=== PATIENT | female | born 1950 | race Caucasian/White ===

== ENCOUNTER 2020-08-01 13:13 | Inpatient (IN) | payer MEDICARE, MEDICAID ==
[2020-08-01] MEDS ORDERED: Sodium Chloride 0.9% 10 ML Syringe FLUSH PRN (13:22)
--- NOTE | 2020-08-01 13:38 | EDM.PDOC ---
ED HPI GENERAL MEDICAL PROBLEM - General Stated Complaint: STROKE CODE Time Seen by Provider: 08/01/20 13:13 Source of Information: Reports: Patient, EMS, RN Notes Reviewed - History of Present Illness INITIAL COMMENTS - FREE TEXT/NARRATIVE: Pt. presents to ER via EMS from [facility] as a stroke code. EMS relates that when the patient was checked on this AM at approx. 0800, the patient was weak, with possible increased weakness on the R side vs. L. Pt., however, reports increased global weakness. She also is noted to have increased dysarthria/slurred speech. She vomited once today, but reports experiencing nausea/vomiting yesterday as well. Pt. was afebrile and has not been recently ill. Pt. states that the weakness/speech problems were present when she woke up this AM. Unknown last known well. Pt. has not had any facial drool. Staff at the senior living states that she is much more weak today. She is also confused; she is not able to tell time today. Pt. denies any headache, vision loss or change, numbness/tingling in extremities. Denies any chest pain or shortness of breath. No current nausea; she did vomit once this AM at the senior living. Onset: Today Onset Date: 08/01/20 Location: Reports: Generalized - Related Data Allergies Allergy/AdvReac Type Severity Reaction Status Date / Time fluphenazine [From Prolixin] Allergy Other Verified 08/01/20 13:21 wool Allergy Other Verified 08/01/20 13:22 ED ROS GENERAL - Review of Systems Review Of Systems: See Below Constitutional: Reports: Malaise, Weakness, Fatigue. Denies: Fever, Chills HEENT: Reports: No Symptoms Respiratory: Reports: No Symptoms Cardiovascular: Reports: No Symptoms Endocrine: Reports: No Symptoms GI/Abdominal: Reports: No Symptoms : Reports: No Symptoms Musculoskeletal: Reports: No Symptoms Skin: Reports: No Symptoms Neurological: Reports: Confusion, Weakness, Change in Speech Psychiatric: Reports: No Symptoms Hematologic/Lymphatic: Reports: No Symptoms ED EXAM, GENERAL - Physical Exam Exam: See Below Exam Limited By: No Limitations General Appearance: Alert, Lethargic Eye Exam: Bilateral Eye: EOMI, Normal Fundi, Normal Inspection, PERRL Throat/Mouth: Normal Inspection, Normal Lips, Normal Teeth, Normal Oropharynx, No Airway Compromise Head: Atraumatic, Normocephalic Neck: Normal Inspection, Supple, Non-Tender, Full Range of Motion Respiratory/Chest: No Respiratory Distress, Lungs Clear, Normal Breath Sounds, No Accessory Muscle Use, Chest Non-Tender Cardiovascular: Normal Peripheral Pulses, Regular Rate, Rhythm, No Edema, No JVD GI/Abdominal: Normal Bowel Sounds, Soft, Non-Tender (Female) Exam: Vaginal Discharge (nursing reports some mucus when pt. was cathed. She was incontinent of stool.) Back Exam: Normal Inspection, Full Range of Motion Extremities: Normal Inspection, Normal Range of Motion, Non-Tender, No Pedal Edema, Normal Capillary Refill Neurological: Alert, Other (Globally weak. See NIH stroke scale attached. She is confused. Speech is slurred. Often refuses to submit to neuro evaluation but it appears that her weakness is global.) Psychiatric: Depressed Mood, Flat Affect Skin Exam: Warm, Dry, Intact, Normal Color, Pallor #1 Interpretation Rhythm: NSR Tappen: Normal P-Wave: Present QRS: Normal ST-T: Normal QT: Normal Course - Orders/Labs/Meds Orders: Active Orders 24 hr Category Date Time Status Patient Status [ADT] Routine ADT 08/01/20 15:12 Ordered EKG Documentation Completion [RC] STAT Care 08/01/20 13:23 Active Head wo Cont [CT] Stat Exams 08/01/20 13:28 Taken CULTURE BLOOD [BC] Stat Lab 08/01/20 13:36 Received CULTURE BLOOD [BC] Stat Lab 08/01/20 13:36 Received CULTURE URINE [RM] Stat Lab 08/01/20 14:15 Received Sodium Chloride 0.9% [Saline Flush] Med 08/01/20 13:22 Active 10 ml FLUSH ASDIRECTED PRN Blood Culture x2 Reflex Set [OM.PC] Stat Oth 08/01/20 13:25 Ordered Peripheral IV Insertion Adult [OM.PC] Routine Oth 08/01/20 13:23 Ordered Medication Orders Sodium Chloride (Saline Flush) 10 ml FLUSH ASDIRECTED PRN PRN Reason: Keep Vein Open Labs: Laboratory Tests 08/01/20 08/01/20 08/01/20 Range/Units 13:37 13:37 13:37 WBC 14.5 H (4.0-10.0) x10^3/uL RBC 4.07 (4.00-5.50) x10^6/uL Hgb 12.1 (12.0-16.0) g/dL Hct 39.6 (33.0-47.0) % MCV 97.3 H (78.0-93.0) fL MCH 29.7 (26.0-32.0) pg MCHC 30.6 L (32.0-36.0) g/dL RDW Coeff of Billy 12.7 (10.0-15.0) % Plt Count 264 (130-400) x10^3/uL Neut % (Auto) 91.5 H (50.0-80.0) % Lymph % (Auto) 4.0 L (25.0-50.0) % [place] % (Auto) 4.3 (2.0-11.0) % Eos % (Auto) 0.1 (0.0-4.0) % Baso % (Auto) 0.1 L (0.2-1.2) % PT 11.4 (9.9-12.5) SEC INR 1.0 L (2.0-3.5) APTT (25.6-32.8) SEC Sodium 141 (136-145) mmol/L Potassium 4.1 (3.5-5.1) mmol/L Chloride 104 (98-107) mmol/L Carbon Dioxide 26 (21-32) mmol/L Anion Gap 15.1 H (5-15) mmol/L BUN 25 H (7-18) mg/dL Creatinine 1.1 H (0.55-1.02) mg/dL Est Cr Clr Drug Dosing TNP Estimated GFR (MDRD) 49 Glucose 161 H (74-106) mg/dL Lactic Acid (0.4-2.0) mmol/L Calcium 10.0 (8.5-10.1) mg/dL Corrected Calcium 10.00 (8.5-10.1) mg/dL Magnesium 2.6 H (1.8-2.4) mg/dL Total Bilirubin 0.4 (0.2-1.0) mg/dL AST 15 (15-37) U/L ALT 18 (14-59) U/L Alkaline Phosphatase 118 H (46-116) U/L POC Troponin I (0.00-0.08) ng/mL C-Reactive Protein 1.8 H (<=0.9) mg/dL Total Protein 8.0 (6.4-8.2) g/dL Albumin 4.0 (3.4-5.0) g/dL Globulin 4.0 Albumin/Globulin Ratio 1.00 TSH, Ultra Sensitive 1.094 (0.358-3.74) uIU/mL Urine Color (YELLOW) Urine Appearance (CLEAR) Urine pH (5.0-8.0) Ur Specific [place] Urine Protein (NEGATIVE) mg/dL Urine Glucose (UA) (NEGATIVE) mg/dL Urine Ketones (NEGATIVE) mg/dL Urine Occult Blood (NEGATIVE) Urine Nitrite (NEGATIVE) Urine Bilirubin (NEGATIVE) Urine Urobilinogen (0.2) EU/dL Ur Leukocyte Esterase (NEGATIVE) Urine RBC (NOT SEEN) /HPF Urine WBC (NOT SEEN) /HPF Ur Squamous Epith Cells (NEGATIVE) /HPF Urine Bacteria (NEGATIVE) /HPF Urine Mucus (NEGATIVE) /LPF Urine Opiates Screen (NEGATIVE) Ur Buprenorphine Scrn (NEGATIVE) Ur Oxycodone Screen (NEGATIVE) Ur EDDP (Meth Metab) (NEGATIVE) Urine Methadone Screen (NEGATIVE) Ur Barbiturates Screen (NEGATIVE) Ur Tricyclics Screen (NEGATIVE) Ur Phencyclidine Scrn (NEGATIVE) Ur Amphetamine Screen (NEGATIVE) U Methamphetamines Scrn (NEGATIVE) Urine MDMA Screen (NEGATIVE) U Benzodiazepines Scrn (NEGATIVE) U Cocaine Metab Screen (NEGATIVE) U Marijuana (THC) Screen (NEGATIVE) Ethyl Alcohol < 3 (0-3) mg/dL 08/01/20 08/01/20 08/01/20 Range/Units 13:37 13:37 13:37 WBC (4.0-10.0) x10^3/uL RBC (4.00-5.50) x10^6/uL Hgb (12.0-16.0) g/dL Hct (33.0-47.0) % MCV (78.0-93.0) fL MCH (26.0-32.0) pg MCHC (32.0-36.0) g/dL RDW Coeff of Billy (10.0-15.0) % Plt Count (130-400) x10^3/uL Neut % (Auto) (50.0-80.0) % Lymph % (Auto) (25.0-50.0) % [place] % (Auto) (2.0-11.0) % Eos % (Auto) (0.0-4.0) % Baso % (Auto) (0.2-1.2) % PT (9.9-12.5) SEC INR (2.0-3.5) APTT 26.5 (25.6-32.8) SEC Sodium (136-145) mmol/L Potassium (3.5-5.1) mmol/L Chloride (98-107) mmol/L Carbon Dioxide (21-32) mmol/L Anion Gap (5-15) mmol/L BUN (7-18) mg/dL Creatinine (0.55-1.02) mg/dL Est Cr Clr Drug Dosing Estimated GFR (MDRD) Glucose (74-106) mg/dL Lactic Acid 1.7 (0.4-2.0) mmol/L Calcium (8.5-10.1) mg/dL Corrected Calcium (8.5-10.1) mg/dL Magnesium (1.8-2.4) mg/dL Total Bilirubin (0.2-1.0) mg/dL AST (15-37) U/L ALT (14-59) U/L Alkaline Phosphatase (46-116) U/L POC Troponin I 0.00 (0.00-0.08) ng/mL C-Reactive Protein (<=0.9) mg/dL Total Protein (6.4-8.2) g/dL Albumin (3.4-5.0) g/dL Globulin Albumin/Globulin Ratio TSH, Ultra Sensitive (0.358-3.74) uIU/mL Urine Color (YELLOW) Urine Appearance (CLEAR) Urine pH (5.0-8.0) Ur Specific [place] Urine Protein (NEGATIVE) mg/dL Urine Glucose (UA) (NEGATIVE) mg/dL Urine Ketones (NEGATIVE) mg/dL Urine Occult Blood (NEGATIVE) Urine Nitrite (NEGATIVE) Urine Bilirubin (NEGATIVE) Urine Urobilinogen (0.2) EU/dL Ur Leukocyte Esterase (NEGATIVE) Urine RBC (NOT SEEN) /HPF Urine WBC (NOT SEEN) /HPF Ur Squamous Epith Cells (NEGATIVE) /HPF Urine Bacteria (NEGATIVE) /HPF Urine Mucus (NEGATIVE) /LPF Urine Opiates Screen (NEGATIVE) Ur Buprenorphine Scrn (NEGATIVE) Ur Oxycodone Screen (NEGATIVE) Ur EDDP (Meth Metab) (NEGATIVE) Urine Methadone Screen (NEGATIVE) Ur Barbiturates Screen (NEGATIVE) Ur Tricyclics Screen (NEGATIVE) Ur Phencyclidine Scrn (NEGATIVE) Ur Amphetamine Screen (NEGATIVE) U Methamphetamines Scrn (NEGATIVE) Urine MDMA Screen (NEGATIVE) U Benzodiazepines Scrn (NEGATIVE) U Cocaine Metab Screen (NEGATIVE) U Marijuana (THC) Screen (NEGATIVE) Ethyl Alcohol (0-3) mg/dL 08/01/20 08/01/20 Range/Units 14:15 14:15 WBC (4.0-10.0) x10^3/uL RBC (4.00-5.50) x10^6/uL Hgb (12.0-16.0) g/dL Hct (33.0-47.0) % MCV (78.0-93.0) fL MCH (26.0-32.0) pg MCHC (32.0-36.0) g/dL RDW Coeff of Billy (10.0-15.0) % Plt Count (130-400) x10^3/uL Neut % (Auto) (50.0-80.0) % Lymph % (Auto) (25.0-50.0) % [place] % (Auto) (2.0-11.0) % Eos % (Auto) (0.0-4.0) % Baso % (Auto) (0.2-1.2) % PT (9.9-12.5) SEC INR (2.0-3.5) APTT (25.6-32.8) SEC Sodium (136-145) mmol/L Potassium (3.5-5.1) mmol/L Chloride (98-107) mmol/L Carbon Dioxide (21-32) mmol/L Anion Gap (5-15) mmol/L BUN (7-18) mg/dL Creatinine (0.55-1.02) mg/dL Est Cr Clr Drug Dosing Estimated GFR (MDRD) Glucose (74-106) mg/dL Lactic Acid (0.4-2.0) mmol/L Calcium (8.5-10.1) mg/dL Corrected Calcium (8.5-10.1) mg/dL Magnesium (1.8-2.4) mg/dL Total Bilirubin (0.2-1.0) mg/dL AST (15-37) U/L ALT (14-59) U/L Alkaline Phosphatase (46-116) U/L POC Troponin I (0.00-0.08) ng/mL C-Reactive Protein (<=0.9) mg/dL Total Protein (6.4-8.2) g/dL Albumin (3.4-5.0) g/dL Globulin Albumin/Globulin Ratio TSH, Ultra Sensitive (0.358-3.74) uIU/mL Urine Color Yellow (YELLOW) Urine Appearance Cloudy H (CLEAR) Urine pH 6.5 (5.0-8.0) Ur Specific [place] 1.020 Urine Protein 30 H (NEGATIVE) mg/dL Urine Glucose (UA) Negative (NEGATIVE) mg/dL Urine Ketones 15 H (NEGATIVE) mg/dL Urine Occult Blood Trace-lysed H (NEGATIVE) Urine Nitrite Positive H (NEGATIVE) Urine Bilirubin Negative (NEGATIVE) Urine Urobilinogen 0.2 (0.2) EU/dL Ur Leukocyte Esterase Moderate H (NEGATIVE) Urine RBC 5-10 H (NOT SEEN) /HPF Urine WBC 30-40 H (NOT SEEN) /HPF Ur Squamous Epith Cells Occasional H (NEGATIVE) /HPF Urine Bacteria Many H (NEGATIVE) /HPF Urine Mucus Few H (NEGATIVE) /LPF Urine Opiates Screen Negative (NEGATIVE) Ur Buprenorphine Scrn Negative (NEGATIVE) Ur Oxycodone Screen Negative (NEGATIVE) Ur EDDP (Meth Metab) Negative (NEGATIVE) Urine Methadone Screen Negative (NEGATIVE) Ur Barbiturates Screen Negative (NEGATIVE) Ur Tricyclics Screen Negative (NEGATIVE) Ur Phencyclidine Scrn Negative (NEGATIVE) Ur Amphetamine Screen Negative (NEGATIVE) U Methamphetamines Scrn Negative (NEGATIVE) Urine MDMA Screen Negative (NEGATIVE) U Benzodiazepines Scrn Negative (NEGATIVE) U Cocaine Metab Screen Negative (NEGATIVE) U Marijuana (THC) Screen Negative (NEGATIVE) Ethyl Alcohol (0-3) mg/dL Meds: Medications Generic Name Dose Route Start Last Admin Trade Name Freq PRN Reason Stop Dose Admin Sodium Chloride 10 ml 08/01/20 13:22 Saline Flush FLUSH ASDIRECTED PRN Keep Vein Open Discontinued Medications Generic Name Dose Route Start Last Admin Trade Name Freq PRN Reason Stop Dose Admin Ceftriaxone Sodium 2 gm 02/15/21 14:35 08/01/20 14:45 Rocephin IVPUSH 08/01/20 14:36 2 gm STAT ONE Administration - Radiology Interpretation Free Text/Narrative:: chest x-ray showed no obvious infiltrate. Poor air entry. No pneumo or pleural effusion. CT head without contrast negative for acute pathology. - Re-Assessments/Exams Free Text/Narrative Re-Assessment/Exam: Pt. was given rocephin 2gm IV for UTI. She was started on IV normal saline at 125ml/hr. Departure - Departure Time of Disposition: 15:37 Disposition: Admitted As Inpatient 66 Clinical Impression: UTI (urinary tract infection) - Discharge Information - Problem List Review Problem List Initiated/Reviewed/Updated: Yes - My Orders Last 24 Hours: My Active Orders 08/01/20 13:22 Sodium Chloride 0.9% [Saline Flush] 10 ml FLUSH ASDIRECTED PRN 08/01/20 13:23 EKG Documentation Completion [RC] STAT Peripheral IV Insertion Adult [OM.PC] Routine 08/01/20 13:25 Blood Culture x2 Reflex Set [OM.PC] Stat 08/01/20 13:28 Head wo Cont [CT] Stat 08/01/20 13:36 CULTURE BLOOD [BC] Stat CULTURE BLOOD [BC] Stat 08/01/20 14:15 CULTURE URINE [RM] Stat 08/01/20 15:12 Patient Status [ADT] Routine - Assessment/Plan Last 24 Hours: My Active Orders 08/01/20 13:22 Sodium Chloride 0.9% [Saline Flush] 10 ml FLUSH ASDIRECTED PRN 08/01/20 13:23 EKG Documentation Completion [RC] STAT Peripheral IV Insertion Adult [OM.PC] Routine 08/01/20 13:25 Blood Culture x2 Reflex Set [OM.PC] Stat 08/01/20 13:28 Head wo Cont [CT] Stat 08/01/20 13:36 CULTURE BLOOD [BC] Stat CULTURE BLOOD [BC] Stat 08/01/20 14:15 CULTURE URINE [RM] Stat 08/01/20 15:12 Patient Status [ADT] Routine Plan: Pt. will be admitted acutely by Dr. Marrufo. Pt. PCP is Dr. Vazquez. Pt. is a code 2, DNR/DNI. Will trend lactic acid. Continue IV rocephin daily.
--- NOTE | 2020-08-01 14:22 | CR ---
[id number] RAD/RAD Chest PA or AP 1V EXAM: RAD Chest PA or AP 1V INDICATION: WEAKNESS STROKE CODE COMPARISON: None available. DISCUSSION: Cardiomediastinal silhouette is normal in size and contour. Low lung volumes with associated vascular crowding. No pneumothorax or pleural effusion. Left basilar subsegmental atelectasis and or scarring. IMPRESSION: Low lung volumes with associated vascular crowding. Yazan Garcia DO 08/01/20 1421 Thank you for allowing us to participate in the care of your patient.
[2020-08-01 14:23] LABS: CHLORIDE,CL 104 mmol/L (98-107); SODIUM,NA 141 mmol/L (136-145)
[2020-08-01 14:24] LABS: ANION GAP 15.1 mmol/L (5-15)
[2020-08-01 14:25] LABS: BARBITURATE SCREEN,URINE NEGATIVE (NEGATIVE); BENZODIAZEPINES SCREEN,URINE NEGATIVE (NEGATIVE); EDDP,URINE SCREEN NEGATIVE (NEGATIVE); METHAMPHETAMINE SCREEN, URINE NEGATIVE (NEGATIVE); TCA SCREEN,URINE NEGATIVE (NEGATIVE); THC SCREEN,URINE 50 NG/ML NEGATIVE (NEGATIVE)
[2020-08-01] MEDS ORDERED: cefTRIAXone 2 GM Vial IVPUSH ONE (14:35)
[2020-08-01] MEDS ORDERED: Sodium Chloride 0.9% 1,000 ML IV SCH (15:45)
[2020-08-01] MEDS ORDERED: Ondansetron 4 MG/2 ML SDV IVPUSH ONE (15:51)
[2020-08-01] MEDS ORDERED: Acetaminophen 325 MG Tab PO PRN (17:11)
[2020-08-01] MEDS ORDERED: Ondansetron 4 MG Tab.DIS PO PRN (17:11)
--- NOTE | 2020-08-01 17:26 | PCM.HP.2 ---
H&P History of Present Illness - General Date of Service: 08/01/20 Admit Problem/Dx: Admission Diagnosis/Problem Admission Diagnosis/Problem Urosepsis - History of Present Illness Initial Comments - Free Text/Narative: Melanie Simmons is a 69yoF with a PMH of Bipolar disorder, schizophrenia, obesity, hyperlipidemia, hyperglycemia, and anemia who presented to the ER from the [facility] today for evaluation of stroke-like symptoms. EMS reports patient was checked on around 08 100 this morning was noted to be more globally weak on the right side versus the left. She had also been noted to have increas ed dysarthria and slurred speech. She has 2 emesis for the last 24 hours. She was requiring more staff for transfers today and was more confused. Upon arrival to the ED the patient was alert and oriented. Per the ER physicians exam he believed her to be more globally weak with no increased weak ness on one side versus the other. She refuses vital signs. Laboratory evaluation is notable for a leukocytosis of 14.5 with a left shift. Anion gap of 15.1, CRP 1.8, Actiq acid 1.7. Chest x-ray was normal. CT of the head was normal. Urinalysis was notable for positive nitrates, positive leukocyte esterase, trace blood, many bacteria as well as WBCs. She was treated with Rocephin 2 g and admitted to the floor for acute cares. Upon my examination the patient is unsure of why she is here, "I'm shaking." She denies any fevers, chills, LH/dizziness, palpitations, CP, abdominal pain, troubles with her bowels or bladder, or back pain. She does admit to 2 episodes of emesis and some ongoing nausea but her soda did help with this. When asked specifically she does admit to feeling more weak and being unable to care for herself today. - Related Data Allergies/Adverse Reactions: Allergies Allergy/AdvReac Type Severity Reaction Status Date / Time fluphenazine [From Prolixin] Allergy Other Verified 08/01/20 13:21 wool Allergy Other Verified 08/01/20 13:22 Home Medications: Home Meds Acetaminophen [Tylenol Arthritis] 650 mg PO Q8H 08/01/20 [History] Acetaminophen [Tylenol Arthritis] 650 mg PO TID 08/01/20 [History] Acetaminophen/HYDROcodone [[place] 325-5 MG] 1 tab PO BID 08/01/20 [History] Calcium Citrate/Vitamin D3 [Calcium Citrate - Vit D Tablet] 1 each PO BID 08/01/20 [History] Cyanocobalamin (Vitamin B-12) [B-12] 1 tab PO DAILY 08/01/20 [History] Akwesasne Carbonate [Akwesasne Carbonate ER] 750 mg PO DAILY 08/01/20 [History] Magnesium Chloride [Mag Delay] 128 mg PO BID 08/01/20 [History] OLANZapine [ZyPREXA] 10 mg PO DAILY 08/01/20 [History] Pnv No.95/Ferrous Fum/Folic AC [ Vitamin Tablet] 1 each PO DAILY 08/01/20 [History] QUEtiapine Fumarate [Seroquel Xr] 650 mg PO DAILY 08/01/20 [History] Sertraline [Zoloft] 100 mg PO DAILY 08/01/20 [History] bisacodyL [Bisacodyl] 5 mg PO ACBREAKFAST PRN 08/01/20 [History] bisacodyL [Bisacodyl] 5 mg PO DAILY 08/01/20 [History] gemfibroziL [Gemfibrozil] 600 mg PO BID 08/01/20 [History] polyethylene glycoL 3350 [Miralax] 17 gm PO BID 08/01/20 [History] Past Medical History Gastrointestinal History: Reports: Chronic Constipation Genitourinary History: Reports: Urinary Incontinence Other Psychiatric History: OCD, paranoid schizophrenia, schizoaffective disorder, bipolar type, borderline personality disorder. Hematologic History: Reports: Anemia H&P Review of Systems - Review of Systems: Review Of Systems: See Below General: Reports: Weakness HEENT: Reports: No Symptoms Pulmonary: Reports: No Symptoms Cardiovascular: Reports: No Symptoms Gastrointestinal: Reports: No Symptoms Genitourinary: Reports: No Symptoms Musculoskeletal: Reports: No Symptoms Skin: Reports: No Symptoms Psychiatric: Reports: No Symptoms Neurological: Reports: Confusion, Weakness Exam - Exam Exam: See Below - Vital Signs Weight: 227 lb 12.8 oz - Exam General: Alert, Cooperative (cooperative during ROS and history, not so with exam (neuro)) HEENT: Conjunctiva Clear, EOMI, Mucosa Moist & Combine, Pupils Equal Neck: Supple Lungs: Clear to Auscultation, Normal Respiratory Effort Cardiovascular: Regular Rate, Regular Rhythm GI/Abdominal Exam: Normal Bowel Sounds, Soft, Non-Tender, No Distention Back Exam: Other (deferred by patient) Extremities: Normal Inspection, Non-Tender, No Pedal Edema Skin: Warm, Dry, Intact Neurological: Other (patient would not comply with neuro exam past a rough CN exam that was normal. Her speech is slowed and mildly slurred.) Neuro Extensive - Mental Status: Alert Neuro Extensive - Motor, Sensory, Reflexes: CN II-XII Intact Psychiatric: Alert - Patient Data Lab Results Last 24 hrs: Laboratory Results - last 24 hr 08/01/20 08/01/20 08/01/20 Range/Units 13:37 13:37 13:37 WBC 14.5 H (4.0-10.0) x10^3/uL RBC 4.07 (4.00-5.50) x10^6/uL Hgb 12.1 (12.0-16.0) g/dL Hct 39.6 (33.0-47.0) % MCV 97.3 H (78.0-93.0) fL MCH 29.7 (26.0-32.0) pg MCHC 30.6 L (32.0-36.0) g/dL RDW Coeff of Billy 12.7 (10.0-15.0) % Plt Count 264 (130-400) x10^3/uL Neut % (Auto) 91.5 H (50.0-80.0) % Lymph % (Auto) 4.0 L (25.0-50.0) % [place] % (Auto) 4.3 (2.0-11.0) % Eos % (Auto) 0.1 (0.0-4.0) % Baso % (Auto) 0.1 L (0.2-1.2) % PT 11.4 (9.9-12.5) SEC INR 1.0 L (2.0-3.5) APTT (25.6-32.8) SEC Sodium 141 (136-145) mmol/L Potassium 4.1 (3.5-5.1) mmol/L Chloride 104 (98-107) mmol/L Carbon Dioxide 26 (21-32) mmol/L Anion Gap 15.1 H (5-15) mmol/L BUN 25 H (7-18) mg/dL Creatinine 1.1 H (0.55-1.02) mg/dL Est Cr Clr Drug Dosing TNP Estimated GFR (MDRD) 49 Glucose 161 H (74-106) mg/dL Lactic Acid (0.4-2.0) mmol/L Calcium 10.0 (8.5-10.1) mg/dL Corrected Calcium 10.00 (8.5-10.1) mg/dL Magnesium 2.6 H (1.8-2.4) mg/dL Total Bilirubin 0.4 (0.2-1.0) mg/dL AST 15 (15-37) U/L ALT 18 (14-59) U/L Alkaline Phosphatase 118 H (46-116) U/L POC Troponin I (0.00-0.08) ng/mL C-Reactive Protein 1.8 H (<=0.9) mg/dL Total Protein 8.0 (6.4-8.2) g/dL Albumin 4.0 (3.4-5.0) g/dL Globulin 4.0 Albumin/Globulin Ratio 1.00 TSH, Ultra Sensitive 1.094 (0.358-3.74) uIU/mL Urine Color (YELLOW) Urine Appearance (CLEAR) Urine pH (5.0-8.0) Ur Specific [place] Urine Protein (NEGATIVE) mg/dL Urine Glucose (UA) (NEGATIVE) mg/dL Urine Ketones (NEGATIVE) mg/dL Urine Occult Blood (NEGATIVE) Urine Nitrite (NEGATIVE) Urine Bilirubin (NEGATIVE) Urine Urobilinogen (0.2) EU/dL Ur Leukocyte Esterase (NEGATIVE) Urine RBC (NOT SEEN) /HPF Urine WBC (NOT SEEN) /HPF Ur Squamous Epith Cells (NEGATIVE) /HPF Urine Bacteria (NEGATIVE) /HPF Urine Mucus (NEGATIVE) /LPF Urine Opiates Screen (NEGATIVE) Ur Buprenorphine Scrn (NEGATIVE) Ur Oxycodone Screen (NEGATIVE) Ur EDDP (Meth Metab) (NEGATIVE) Urine Methadone Screen (NEGATIVE) Ur Barbiturates Screen (NEGATIVE) Ur Tricyclics Screen (NEGATIVE) Ur Phencyclidine Scrn (NEGATIVE) Ur Amphetamine Screen (NEGATIVE) U Methamphetamines Scrn (NEGATIVE) Urine MDMA Screen (NEGATIVE) U Benzodiazepines Scrn (NEGATIVE) U Cocaine Metab Screen (NEGATIVE) U Marijuana (THC) Screen (NEGATIVE) Ethyl Alcohol < 3 (0-3) mg/dL 08/01/20 08/01/20 08/01/20 Range/Units 13:37 13:37 13:37 WBC (4.0-10.0) x10^3/uL RBC (4.00-5.50) x10^6/uL Hgb (12.0-16.0) g/dL Hct (33.0-47.0) % MCV (78.0-93.0) fL MCH (26.0-32.0) pg MCHC (32.0-36.0) g/dL RDW Coeff of Billy (10.0-15.0) % Plt Count (130-400) x10^3/uL Neut % (Auto) (50.0-80.0) % Lymph % (Auto) (25.0-50.0) % [place] % (Auto) (2.0-11.0) % Eos % (Auto) (0.0-4.0) % Baso % (Auto) (0.2-1.2) % PT (9.9-12.5) SEC INR (2.0-3.5) APTT 26.5 (25.6-32.8) SEC Sodium (136-145) mmol/L Potassium (3.5-5.1) mmol/L Chloride (98-107) mmol/L Carbon Dioxide (21-32) mmol/L Anion Gap (5-15) mmol/L BUN (7-18) mg/dL Creatinine (0.55-1.02) mg/dL Est Cr Clr Drug Dosing Estimated GFR (MDRD) Glucose (74-106) mg/dL Lactic Acid 1.7 (0.4-2.0) mmol/L Calcium (8.5-10.1) mg/dL Corrected Calcium (8.5-10.1) mg/dL Magnesium (1.8-2.4) mg/dL Total Bilirubin (0.2-1.0) mg/dL AST (15-37) U/L ALT (14-59) U/L Alkaline Phosphatase (46-116) U/L POC Troponin I 0.00 (0.00-0.08) ng/mL C-Reactive Protein (<=0.9) mg/dL Total Protein (6.4-8.2) g/dL Albumin (3.4-5.0) g/dL Globulin Albumin/Globulin Ratio TSH, Ultra Sensitive (0.358-3.74) uIU/mL Urine Color (YELLOW) Urine Appearance (CLEAR) Urine pH (5.0-8.0) Ur Specific [place] Urine Protein (NEGATIVE) mg/dL Urine Glucose (UA) (NEGATIVE) mg/dL Urine Ketones (NEGATIVE) mg/dL Urine Occult Blood (NEGATIVE) Urine Nitrite (NEGATIVE) Urine Bilirubin (NEGATIVE) Urine Urobilinogen (0.2) EU/dL Ur Leukocyte Esterase (NEGATIVE) Urine RBC (NOT SEEN) /HPF Urine WBC (NOT SEEN) /HPF Ur Squamous Epith Cells (NEGATIVE) /HPF Urine Bacteria (NEGATIVE) /HPF Urine Mucus (NEGATIVE) /LPF Urine Opiates Screen (NEGATIVE) Ur Buprenorphine Scrn (NEGATIVE) Ur Oxycodone Screen (NEGATIVE) Ur EDDP (Meth Metab) (NEGATIVE) Urine Methadone Screen (NEGATIVE) Ur Barbiturates Screen (NEGATIVE) Ur Tricyclics Screen (NEGATIVE) Ur Phencyclidine Scrn (NEGATIVE) Ur Amphetamine Screen (NEGATIVE) U Methamphetamines Scrn (NEGATIVE) Urine MDMA Screen (NEGATIVE) U Benzodiazepines Scrn (NEGATIVE) U Cocaine Metab Screen (NEGATIVE) U Marijuana (THC) Screen (NEGATIVE) Ethyl Alcohol (0-3) mg/dL 08/01/20 08/01/20 Range/Units 14:15 14:15 WBC (4.0-10.0) x10^3/uL RBC (4.00-5.50) x10^6/uL Hgb (12.0-16.0) g/dL Hct (33.0-47.0) % MCV (78.0-93.0) fL MCH (26.0-32.0) pg MCHC (32.0-36.0) g/dL RDW Coeff of Billy (10.0-15.0) % Plt Count (130-400) x10^3/uL Neut % (Auto) (50.0-80.0) % Lymph % (Auto) (25.0-50.0) % [place] % (Auto) (2.0-11.0) % Eos % (Auto) (0.0-4.0) % Baso % (Auto) (0.2-1.2) % PT (9.9-12.5) SEC INR (2.0-3.5) APTT (25.6-32.8) SEC Sodium (136-145) mmol/L Potassium (3.5-5.1) mmol/L Chloride (98-107) mmol/L Carbon Dioxide (21-32) mmol/L Anion Gap (5-15) mmol/L BUN (7-18) mg/dL Creatinine (0.55-1.02) mg/dL Est Cr Clr Drug Dosing Estimated GFR (MDRD) Glucose (74-106) mg/dL Lactic Acid (0.4-2.0) mmol/L Calcium (8.5-10.1) mg/dL Corrected Calcium (8.5-10.1) mg/dL Magnesium (1.8-2.4) mg/dL Total Bilirubin (0.2-1.0) mg/dL AST (15-37) U/L ALT (14-59) U/L Alkaline Phosphatase (46-116) U/L POC Troponin I (0.00-0.08) ng/mL C-Reactive Protein (<=0.9) mg/dL Total Protein (6.4-8.2) g/dL Albumin (3.4-5.0) g/dL Globulin Albumin/Globulin Ratio TSH, Ultra Sensitive (0.358-3.74) uIU/mL Urine Color Yellow (YELLOW) Urine Appearance Cloudy H (CLEAR) Urine pH 6.5 (5.0-8.0) Ur Specific [place] 1.020 Urine Protein 30 H (NEGATIVE) mg/dL Urine Glucose (UA) Negative (NEGATIVE) mg/dL Urine Ketones 15 H (NEGATIVE) mg/dL Urine Occult Blood Trace-lysed H (NEGATIVE) Urine Nitrite Positive H (NEGATIVE) Urine Bilirubin Negative (NEGATIVE) Urine Urobilinogen 0.2 (0.2) EU/dL Ur Leukocyte Esterase Moderate H (NEGATIVE) Urine RBC 5-10 H (NOT SEEN) /HPF Urine WBC 30-40 H (NOT SEEN) /HPF Ur Squamous Epith Cells Occasional H (NEGATIVE) /HPF Urine Bacteria Many H (NEGATIVE) /HPF Urine Mucus Few H (NEGATIVE) /LPF Urine Opiates Screen Negative (NEGATIVE) Ur Buprenorphine Scrn Negative (NEGATIVE) Ur Oxycodone Screen Negative (NEGATIVE) Ur EDDP (Meth Metab) Negative (NEGATIVE) Urine Methadone Screen Negative (NEGATIVE) Ur Barbiturates Screen Negative (NEGATIVE) Ur Tricyclics Screen Negative (NEGATIVE) Ur Phencyclidine Scrn Negative (NEGATIVE) Ur Amphetamine Screen Negative (NEGATIVE) U Methamphetamines Scrn Negative (NEGATIVE) Urine MDMA Screen Negative (NEGATIVE) U Benzodiazepines Scrn Negative (NEGATIVE) U Cocaine Metab Screen Negative (NEGATIVE) U Marijuana (THC) Screen Negative (NEGATIVE) Ethyl Alcohol (0-3) mg/dL Result Diagrams: 08/01/20 13:37 08/01/20 13:37 Sepsis Event Note - Evaluation Sepsis Screening Result: No Definite Risk - Problem List (1) Bipolar 1 disorder SNOMED Code(s): 043062436 ICD Code: F31.9 - BIPOLAR DISORDER, UNSPECIFIED Status: Acute Current Visit: Yes (2) Schizophrenia SNOMED Code(s): 00024035 ICD Code: F20.9 - SCHIZOPHRENIA, UNSPECIFIED Status: Acute Current Visit: Yes (3) Obesity SNOMED Code(s): 864736620, 324141867 ICD Code: E66.9 - OBESITY, UNSPECIFIED Status: Acute Current Visit: Yes (4) Hyperlipidemia SNOMED Code(s): 16591492 ICD Code: E78.5 - HYPERLIPIDEMIA, UNSPECIFIED Status: Acute Current Visit: Yes (5) Hyperglycemia SNOMED Code(s): 47928482 ICD Code: R73.9 - HYPERGLYCEMIA, UNSPECIFIED Status: Acute Current Visit: Yes (6) Anemia SNOMED Code(s): 226854859 ICD Code: D64.9 - ANEMIA, UNSPECIFIED Status: Acute Current Visit: Yes (7) UTI (urinary tract infection) SNOMED Code(s): 89094403 ICD Code: N39.0 - URINARY TRACT INFECTION, SITE NOT SPECIFIED Status: Acute Current Visit: Yes Problem List Initiated/Reviewed/Updated: Yes Orders Last 24hrs: Active Orders 24 hr Category Date Time Status Patient Status [ADT] Routine ADT 08/01/20 15:12 Active Blood Glucose Check, Bedside [RC] TIDMEALS Care 08/01/20 17:11 Ordered Dietary Supplements [RC] BIDMEALS Care 08/01/20 17:20 Ordered Intake and Output [RC] QSHIFT Care 08/01/20 17:11 Ordered Oxygen Therapy [RC] PRN Care 08/01/20 17:11 Ordered Up With Assistance [RC] ASDIRECTED Care 08/01/20 17:11 Ordered VTE/DVT Education [RC] PER UNIT ROUTINE Care 08/01/20 17:11 Ordered Vital Signs [RC] Q4H Care 08/01/20 17:11 Ordered [place] [employer] Diet [DIET] Diet 08/01/20 Dinner Ordered Head wo Cont [CT] Stat Exams 08/01/20 13:28 Taken BASIC METABOLIC PANEL,BMP [CHEM] DAILY Lab 08/02/20 06:00 Ordered CBC WITH AUTO DIFF [HEME] DAILY Lab 08/02/20 06:00 Ordered CULTURE BLOOD [BC] Stat Lab 08/01/20 13:36 Received CULTURE BLOOD [BC] Stat Lab 08/01/20 13:36 Received CULTURE MRSA SURVEY [RM] Routine Lab 08/01/20 17:08 Ordered CULTURE URINE [RM] Stat Lab 08/01/20 14:15 Received Acetaminophen [TylenoL] Med 08/01/20 17:11 Ordered 650 mg PO Q4H PRN Acetaminophen/HYDROcodone [[place] 325-5 MG] Med 08/01/20 20:00 Ordered 1 tab PO BID Calcium Citrate/Vitamin D3 [Calcium Citrate - Vit D Med 08/01/20 20:00 Ordered Tablet] 1 each PO BID Cyanocobalamin (Vitamin B12) [Vitamin B12] Med 08/02/20 08:00 Ordered 1 tab PO DAILY Heparin Sodium Med 08/01/20 17:15 Ordered 5,000 units SUBCUT Q8H Akwesasne Carbonate [Eskalith CR] Med 08/02/20 08:00 Ordered 750 mg PO DAILY Magnesium Chloride [Mag-64] Med 08/01/20 20:00 Ordered 128 mg PO BID OLANZapine [ZyPREXA] Med 08/02/20 08:00 Ordered 10 mg PO DAILY Ondansetron [Zofran ODT] Med 08/01/20 17:11 Ordered 4 mg PO Q4H PRN Pnv No.95/Ferrous Fum/Folic AC [ Vitamin Tablet Med 08/02/20 08:00 Ordered ] 1 each PO DAILY QUEtiapine Fumarate [Seroquel Xr] Med 08/02/20 08:00 Ordered 650 mg PO DAILY Sertraline [Zoloft] Med 08/02/20 08:00 Ordered 100 mg PO DAILY Sodium Chloride 0.9% [Normal Saline] 1,000 ml Med 08/01/20 15:45 Active IV ASDIRECTED Sodium Chloride 0.9% [Saline Flush] Med 08/01/20 13:22 Active 10 ml FLUSH ASDIRECTED PRN bisacodyL [Dulcolax] Med 08/02/20 08:00 Ordered 5 mg PO DAILY cefTRIAXone [Rocephin] Med 08/02/20 08:00 Ordered 2 gm IVPUSH DAILY gemfibroziL [Lopid] Med 08/01/20 20:00 Ordered 600 mg PO BID polyethylene glycoL 3350 [MiraLAX] Med 08/01/20 20:00 Ordered 17 gm PO BID Blood Culture x2 Reflex Set [OM.PC] Stat Oth 08/01/20 13:25 Ordered Peripheral IV Insertion Adult [OM.PC] Routine Oth 08/01/20 13:23 Ordered Resuscitation Status Routine Resus Stat 08/01/20 17:11 Ordered Medication Orders Acetaminophen (Tylenol) 650 mg PO Q4H PRN PRN Reason: Pain (Mild 1-3)/fever Hydrocodone Bitart/Acetaminophen ([place] 325-5 Mg) 1 tab PO BID TOD Bisacodyl (Dulcolax) 5 mg PO DAILY TOD Ceftriaxone Sodium (Rocephin) 2 gm IVPUSH DAILY TOD Cyanocobalamin (Vitamin B12) mcg PO DAILY TOD Gemfibrozil (Lopid) 600 mg PO BID TOD Heparin Sodium (Porcine) (Heparin Sodium) 5,000 units SUBCUT Q8H TOD Sodium Chloride (Normal Saline) 1,000 mls @ 125 mls/hr IV ASDIRECTED TOD Last Admin: 08/01/20 15:59 Dose: 125 mls/hr Documented by: ROMA Akwesasne Carbonate (Eskalith Cr) 750 mg PO DAILY TOD Magnesium Chloride (Mag-64) 128 mg PO BID TOD Non-Formulary Medication (Calcium Citrate/Vitamin D3 [Calcium Citrate - Vit D Tablet]) 1 each PO BID TOD Non-Formulary Medication (Quetiapine Fumarate [Seroquel Xr]) 650 mg PO DAILY TOD Non-Formulary Medication (Pnv No.95/Ferrous Fum/Folic Ac [ Vitamin Tabl et]) 1 each PO DAILY TOD Olanzapine (Zyprexa) 10 mg PO DAILY TOD Ondansetron HCl (Zofran Odt) 4 mg PO Q4H PRN PRN Reason: nausea, able to take PO Polyethylene Glycol (Miralax) 17 gm PO BID TOD Sertraline HCl (Zoloft) 100 mg PO DAILY TOD Sodium Chloride (Saline Flush) 10 ml FLUSH ASDIRECTED PRN PRN Reason: Keep Vein Open Assessment/Plan Comment:: UTI: - Patient presenting from [facility] with c/o weakness, exam benign - Found to have UTI on UA - New incontinence today - S/P Rocephin 2g in the ED, in the middle of a 1L fluid bolus Plan: -Continue IV Rocephin -Once she has the 1L in will cut fluids and push oral hydration as CXR did show some mild vascular congestion -Blood and urine cultures pending -Repeat CBC/BMP in the am -Zofran PRN for nausea Generalized weakness/deconditioning - Patient with increased global weakness per ED provider exam (patient would not comply with mine) Plan: - PT and OT evaluation Chronic: Schizophrenia, Bipolar disorder continue home lithium, olanzapine, Seroquel, sertraline, folic acid HLD continue home gemfibraozil Anemia continue vitamin with Iron Hyperglycemia TID glucose monitoring with meals Diet: Diabetic DVT: heparin SQ Code: DNR/DNI Dispositoin: Patient admitted inpatient for IV antibiotics for treatment of UTI. Will monitor cultures and adjust antibiotics as necessary. Will have PT and OT evaluate patient given new onset of increased weakness. - Mortality Measure Prognosis:: Good
[2020-08-01] MEDS ORDERED: Heparin Sodium 5,000 Units/ML Vial SUBCUT SCH (18:00)
[2020-08-01] MEDS: Polyethylene Glycol 3350 Powder 17 GM Packet PO SCH (20:10)
[2020-08-01] MEDS: Gemfibrozil 600 MG Tab PO SCH (20:11)
[2020-08-01] MEDS: Heparin Sodium 5,000 Units/ML Vial SUBCUT SCH (20:11)
[2020-08-01] MEDS: Magnesium Chloride 64 MG Tab.ER PO SCH (20:11)
[2020-08-01] MEDS: Calcium Carbonate/Vitamin D3 1250 MG-200 Unit Tab PO SCH (20:12)
[2020-08-01] MEDS: Acetaminophen/HYDROcodone 325-5 MG Tab PO SCH (20:12)
[2020-08-02] MEDS: Heparin Sodium 5,000 Units/ML Vial SUBCUT SCH ×3 (03:16→19:59)
[2020-08-02 07:15] LABS: CHLORIDE,CL 106 mmol/L (98-107); SODIUM,NA 143 mmol/L (136-145)
[2020-08-02 07:16] LABS: ANION GAP 12.8 mmol/L (5-15)
[2020-08-02] MEDS: Magnesium Chloride 64 MG Tab.ER PO SCH ×2 (08:36→19:59)
[2020-08-02] MEDS: Sertraline 100 MG Tab PO SCH (08:36)
[2020-08-02] MEDS: Bisacodyl 5 MG Tab PO SCH (08:36)
[2020-08-02] MEDS: Cyanocobalamin (Vitamin B12) 1,000 MCG Tab PO SCH (08:36)
[2020-08-02] MEDS: Lithium Carbonate 300 MG Tab.ER PO SCH (08:36)
[2020-08-02] MEDS: Calcium Carbonate/Vitamin D3 1250 MG-200 Unit Tab PO SCH ×2 (08:36→19:57)
[2020-08-02] MEDS: Acetaminophen/HYDROcodone 325-5 MG Tab PO SCH ×2 (08:36→19:57)
[2020-08-02] MEDS: Gemfibrozil 600 MG Tab PO SCH ×2 (08:36→19:58)
[2020-08-02] MEDS: Polyethylene Glycol 3350 Powder 17 GM Packet PO SCH ×2 (08:37→20:01)
--- NOTE | 2020-08-02 09:10 | CT ---
[id number] CT/CT Head WO IV EXAM: CT Head WO IV CLINICAL DATA: STROKE CODE COMPARISON: NO PREVIOUS SIMILAR EXAM IS AVAILABLE FOR COMPARISON. FINDINGS: There is motion artifact There is no mass or mass effect. There is no hemorrhage or hydrocephalus. There are no extra-axial fluid collections. There are no sites of abnormal attenuation. IMPRESSION: NO PLAIN CT EVIDENCE OF ACUTE INTRACRANIAL PROCESS. Paul Simpson MD 08/02/20 0909 Thank you for allowing us to participate in the care of your patient.
[2020-08-02] MEDS ORDERED: OLANZapine 10 MG Tab PO ONE (10:00)
[2020-08-02] MEDS: QUEtiapine 100 MG Tab PO SCH ×2 (10:32→19:56)
--- NOTE | 2020-08-02 10:39 | PN ---
Progress Note for BUNNY Alexander RUNNING Date: 08/02/2020 Room #: [facility] SUBJECTIVE: This is hospital day #2 on a 69-year-old admitted with concern for a stroke due to weakness and dysphagia, but ultimately found to have a UTI, but she did not meet sepsis criteria. She has been afebrile here. She had a new incontinence of urine and confusion, but she denies any pain with urination. She has a known history of schizophrenia. The patient did not get her Seroquel last evening. She is much more alert and awake today. I have already discussed with pharmacy her med dosing for the Zyprexa as well. The patient denies any cough. She denies any shortness of breath. She drank a big glass of orange juice with her pills this morning. She ate half of her breakfast. She has not had any further vomiting since admission. OBJECTIVE: Vital Signs: Her temperature is 99.1, her pulse 87, blood pressure 151/81, respiratory rate 19, and O2 of 93% on room air. General: She is in no acute distress. She is resting in bed comfortably. She wanted to be sat up more to take her pills. She did not recognize me. She is not aware of the date or where she is at. Heart: Regular rate and rhythm. S1, S2 without murmur. Lungs: Sounds are clear to auscultation bilaterally without crackles or wheezes. Abdomen: Has positive bowel sounds. Soft, nondistended, nontender. Extremities: Warm and dry. No edema. Mental Status: She is disorientated. LABORATORY DATA: Her lab work shows her white count improved down to 11.6, hemoglobin 10.7, platelets 229. Sodium 143, potassium 3.8, chloride 106, bicarb 28, BUN 16, creatinine 0.8, glucose 121, calcium 9.8. Urine culture is already growing gram-negative rods. Years ago, she had a UTI and got Bactrim. ASSESSMENT: 1. Gram-negative urinary tract infection, on day #2 IV Rocephin. We will continue with the same. 2. Weakness, seems to be more global. It does not appear the patient had any stroke. We will get her up and working with therapies. 3. Schizophrenia and bipolar. We will continue her home medications. Pharmacy is adjusting doses due to no Seroquel XR availability. She is also on lithium. 4. Anemia. She is on DVT prophylaxis with heparin. We will monitor her hemoglobin closely, likely due to some hemodilution today. 5. Hyperglycemia. She has had some blood sugars improved, 122 and 121 this morning. I think I will discontinue that monitoring. 6. 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 7. Obesity. 8. Hyperlipidemia. 9. Stress incontinence. She is no longer on the oxybutynin, which would likely increase her risks of infection. PLAN: The patient will continue acute cares with IV Rocephin. We will stop IV fluids. She will likely be able to return to [facility] as soon as tomorrow. MKA: 08/02/2020 09:55:54 MODL: 08/02/2020 10:34:10 /[id number]
[2020-08-02] MEDS ORDERED: cefTRIAXone 2 GM Vial IVPUSH SCH (14:00)
[2020-08-02] MEDS ORDERED: OLANZapine 10 MG Tab PO SCH (20:00)
[2020-08-03] MEDS: Heparin Sodium 5,000 Units/ML Vial SUBCUT SCH (04:07)
[2020-08-03 07:28] LABS: CHLORIDE,CL 106 mmol/L (98-107); SODIUM,NA 142 mmol/L (136-145)
[2020-08-03 07:30] LABS: ANION GAP 13.3 mmol/L (5-15)
[2020-08-03] MEDS ORDERED: Multivitamins with Iron/Calcium/Folic Acid/Minerals Tab PO SCH (08:00)
[2020-08-03] MEDS: Bisacodyl 5 MG Tab PO SCH (08:11)
[2020-08-03] MEDS: Acetaminophen/HYDROcodone 325-5 MG Tab PO SCH (08:11)
[2020-08-03] MEDS: Cyanocobalamin (Vitamin B12) 1,000 MCG Tab PO SCH (08:11)
[2020-08-03] MEDS: QUEtiapine 100 MG Tab PO SCH (08:11)
[2020-08-03] MEDS: Polyethylene Glycol 3350 Powder 17 GM Packet PO SCH (08:11)
[2020-08-03] MEDS: Gemfibrozil 600 MG Tab PO SCH (08:11)
[2020-08-03] MEDS: Magnesium Chloride 64 MG Tab.ER PO SCH (08:11)
[2020-08-03] MEDS: Sertraline 100 MG Tab PO SCH (08:12)
[2020-08-03] MEDS: Lithium Carbonate 300 MG Tab.ER PO SCH (08:12)
[2020-08-03] MEDS: Calcium Carbonate/Vitamin D3 1250 MG-200 Unit Tab PO SCH (08:12)
--- NOTE | 2020-08-03 13:40 | DISCH ---
PRIMARY DISCHARGE DIAGNOSES: 1. Escherichia coli urinary tract infection. 2. Confusion and weakness related to urinary tract infection. SECONDARY DISCHARGE DIAGNOSES: Include: 1. Schizophrenia and bipolar disorder. 2. Chronic anemia, on iron. 3. Hyperglycemia without diabetes. 4. 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 5. Obesity. 6. Hyperlipidemia. 7. Stress incontinence. REASON FOR ADMISSION: On the date of admission, this 69-year-old female had weakness and dysarthria. There was concern for a stroke. She was sent over to the ER. She was afebrile but had had some new urinary incontinence. UA was positive. She was placed on IV Rocephin 2 g IV daily. She eventually had a culture that was pansensitive, and we changed her over to Bactrim to complete 3 more days on discharge. The patient did miss her initial psychiatric medications on admission, but these were restarted. Seroquel was immediate release, and she tolerated that well. She did have a very large bowel movement on the evening before her discharge and then this morning she had more loose stools. She is already on MiraLAX twice daily, which she was receiving here. It was not felt that she was having any Clostridium difficile concern. Her breathing was good. She was off oxygen. DISCHARGE PLANS AND INSTRUCTIONS: The patient is going back to [facility]. She did have a COVID test that was negative prior to her discharge back. She had just got out of her 90-day window from having COVID around 04/25/2020. She will complete Bactrim double strength twice daily for 3 more days. No new lab work orders are on file. She will [facility]/OT at the jail, and I will see her on the next scheduled jail rounds. DISCHARGE PHYSICAL EXAMINATION: Vital Signs: Discharging vitals include a temperature of 97.6, pulse 74, blood pressure 143/67, respiratory rate 16, and O2 of 98% on room air. Previous blood pressure was 130/68. General: She is in no acute distress. Heart: Regular rate and rhythm. S1, S2 without murmur. Lungs: Lung sounds are clear to auscultation bilaterally without crackles or wheezes. Abdomen: Has positive bowel sounds. Soft, nondistended, and nontender. Extremities: Warm and dry. No edema. MENTAL STATUS EXAMINATION: The patient is disorientated. She did not recognize me. She said she knew where she was at, but then she did not know she was in the hospital. This is about her baseline from what I [facility]. DISCHARGING LABORATORY WORK: Showed normal white count down to 6.8, hemoglobin stable at 10.6, and platelets 226. She was on heparin for DVT prophylaxis while she was here. Sodium 142, potassium 4.3, chloride 106, bicarbonate 27, BUN 10, creatinine 0.7, calcium 10.4, and glucose 106. LFTs normal. Albumin mildly decreased to 3.2, but the patient was eating and drinking well here. Greater 30 minutes spent on the discharge process. MKA: 08/03/2020 12:55:35 MODL: 08/03/2020 13:35:16 /[id number]
== END 2020-08-03 10:10 | DRG 690 ==
LOC: VM.ED 13:13 → VM.MS 15:12
PROVIDERS: ADMIT Family Medicine; ATTEND Internal Medicine
DX: N39.0 Urinary tract infection, site not specified (principal); B96.20 Unspecified Escherichia coli [E. coli] as the cause of diseases classified elsewhere; Z91.048 Other nonmedicinal substance allergy status; F20.9 Schizophrenia, unspecified; E78.5 Hyperlipidemia, unspecified; N39.3 Stress incontinence (female) (male); R73.9 Hyperglycemia, unspecified; Z20.822 Contact with and (suspected) exposure to COVID-19; K59.09 Other constipation; F31.9 Bipolar disorder, unspecified; F42.9 Obsessive-compulsive disorder, unspecified; Z66 Do not resuscitate; Z88.8 Allergy status to other drugs, medicaments and biological substances; Z91.09 Other allergy status, other than to drugs and biological substances; Z79.899 Other long term (current) drug therapy; M17.0 Bilateral primary osteoarthritis of knee
CPT/HCPCS: 36415; 70450; 71045; 80048; 80053; 80305-QW; 80307; 81001; 82962; 83605; 83735; 84443; 84484; 85025; 85610; 85730; 86140; 87040; 87086; 87088; 87186; 93005; 93010; 96374; 99284; 99285-25; A9270-GY; J0696; J1644; J2405; J7030; U0002

== ENCOUNTER 2020-08-14 22:54 | Emergency (ER) | payer MEDICARE, MEDICAID ==
[2020-08-14] MEDS ORDERED: Sodium Chloride 0.9% 1,000 ML IV SCH (23:15)
[2020-08-14] MEDS ORDERED: Ondansetron 4 MG/2 ML SDV IVPUSH ONE (23:18)
--- NOTE | 2020-08-14 23:27 | EDM.PDOC ---
ED HPI GENERAL MEDICAL PROBLEM - General Stated Complaint: VOMITING ALL DAY Time Seen by Provider: 08/14/20 22:54 Source of Information: Reports: Patient History Limitations: Reports: No Limitations - History of Present Illness INITIAL COMMENTS - FREE TEXT/NARRATIVE: Pt. was sent to ER from [facility] with concerns of GI bleeding. Staff states that the patient fell off of a toilet today when she was left unattended, striking the back of her head. They are also concerned as the patient had been experiencing black vomit and diarrhea today as well. Pt. states that she has felt "queasy" all day. Vitals were all within normal limits, in fact pt. was a bit hypertensive for EMS. She did refuse to take her medications today due to her nausea. She denies any abdominal pain at this time. Pt. denies any current headache. She does have a history of dementia She has been alert all day. Pt. was admitted here from thru for UTI/dehydration. She was treated with Rocephin, and sent home on bactrim DS for 3 more days. She appears to be much more animated tonight, and actually more alert than during her admission earlier in the month. Pt. denies any current urinary symptoms, dysuria, or abdominal pain. Denies any chest pain or shortness of breath. No cough. She is not experiencing any lightheadedness. No fever, chills, or cough. She is able to recall the events of the day, and they seem to follow what was told to us by EMS and PSYCHIATRIC staff. Onset: Today Location: Reports: Head, Generalized Abdominal Pain Score (Numeric/FACES): 4 - Related Data Allergies Allergy/AdvReac Type Severity Reaction Status Date / Time fluphenazine [From Prolixin] Allergy Other Verified 08/14/20 23:26 wool Allergy Other Verified 08/14/20 23:26 Home Meds: Home Meds Acetaminophen [Tylenol Arthritis] 650 mg PO Q8H 08/01/20 [History] Acetaminophen [Tylenol Arthritis] 650 mg PO TID 08/01/20 [History] Acetaminophen/HYDROcodone [[place] 325-5 MG] 1 tab PO BID 08/01/20 [History] Calcium Citrate/Vitamin D3 [Calcium Citrate - Vit D Tablet] 1 each PO BID 08/01/20 [History] Cyanocobalamin (Vitamin B-12) [B-12] 1 tab PO DAILY 08/01/20 [History] [place] Carbonate [[place] Carbonate ER] 750 mg PO DAILY 08/01/20 [History] Magnesium Chloride [Mag Delay] 128 mg PO BID 08/01/20 [History] OLANZapine [ZyPREXA] 20 mg PO BEDTIME 08/01/20 [History] Pnv No.95/Ferrous Fum/Folic AC [ Vitamin Tablet] 1 each PO DAILY 08/01/20 [History] Sertraline [Zoloft] 100 mg PO DAILY 08/01/20 [History] bisacodyL [Bisacodyl] 5 mg PO ACBREAKFAST PRN 08/01/20 [History] bisacodyL [Bisacodyl] 5 mg PO DAILY 08/01/20 [History] gemfibroziL [Gemfibrozil] 600 mg PO BID 08/01/20 [History] polyethylene glycoL 3350 [Miralax] 17 gm PO BID 08/01/20 [History] QUEtiapine Fumarate [Quetiapine Fumarate ER] 200 mg PO BEDTIME 08/02/20 [History] QUEtiapine Fumarate [Quetiapine Fumarate ER] 400 mg PO BEDTIME 08/02/20 [History] Sulfamethoxazole/Trimethoprim [Bactrim Ds Tablet] 1 each PO BID #6 tablet 08/03/20 [Rx] Past Medical History Gastrointestinal History: Reports: Chronic Constipation Genitourinary History: Reports: Urinary Incontinence Other Psychiatric History: OCD, paranoid schizophrenia, schizoaffective disorder, bipolar type, borderline personality disorder. Hematologic History: Reports: Anemia ED ROS GENERAL - Review of Systems Review Of Systems: See Below Constitutional: Reports: No Symptoms HEENT: Reports: Other (Posterior superficial head pain) Respiratory: Reports: No Symptoms Cardiovascular: Reports: No Symptoms Endocrine: Reports: No Symptoms GI/Abdominal: Reports: Black Stool, Hematochezia : Reports: No Symptoms Musculoskeletal: Reports: No Symptoms Skin: Reports: No Symptoms Neurological: Reports: No Symptoms Psychiatric: Reports: No Symptoms Hematologic/Lymphatic: Reports: No Symptoms Immunologic: Reports: No Symptoms ED EXAM, GENERAL - Physical Exam Exam: See Below Exam Limited By: No Limitations General Appearance: Alert, WD/WN, No Apparent Distress Eye Exam: Bilateral Eye: EOMI, Normal Fundi, Normal Inspection, PERRL Throat/Mouth: Normal Inspection, Normal Lips, Normal Voice, No Airway Compromise Head: Atraumatic, Normocephalic Neck: Supple, Non-Tender Respiratory/Chest: No Respiratory Distress, Lungs Clear, No Accessory Muscle Use, Chest Non-Tender Cardiovascular: Normal Peripheral Pulses, Regular Rate, Rhythm, No Edema, No Murmur Peripheral Pulses: 4+: Radial (L) GI/Abdominal: Soft, Non-Tender, No Distention, No Mass, Other (bowel sounds hyperactive. No tenderness on palpation. No rigidity/guarding.) (Female) Exam: Deferred Rectal (Female) Exam: Normal Exam, Normal Rectal Tone, Heme - Stool, Other (Stool negative for occult blood. Stool light brown, loose. No incontinence.). No: Black Stool, Bloody Stool, Heme + Stool Back Exam: Normal Inspection Extremities: Normal Inspection (Normal for patient. Atrophy to lower extremities, consistent with pervious exam. No discomfort on palpation/manipulation of hip joints. Pelvis stable.), Non-Tender Neurological: Alert, CN II-XII Intact, Other (Much more alert that previous exam. Able to recall events of the day and participate in her care.) Psychiatric: Normal Affect, Normal Mood Course - Vital Signs Last Recorded V/S: Last Vital Signs Temp 36.6 C 08/14/20 23:28 Pulse 82 08/14/20 23:58 Resp 15 08/14/20 23:58 BP 170/92 H 08/14/20 23:58 Pulse Ox 98 08/14/20 23:58 - Orders/Labs/Meds Orders: Active Orders 24 hr Category Date Time Status Head wo Cont [CT] Stat Exams 08/14/20 23:11 Stop Req Sodium Chloride 0.9% [Normal Saline] 1,000 ml Med 08/14/20 23:15 Active IV ASDIRECTED Medication Orders Sodium Chloride (Normal Saline) 1,000 mls @ 1,000 mls/hr IV ASDIRECTED TOD Last Admin: 08/14/20 23:18 Dose: 1,000 mls/hr Documented by: SANDRA Labs: Laboratory Tests 08/14/20 08/14/20 08/14/20 Range/Units 23:20 23:46 23:46 WBC 14.3 H (4.0-10.0) x10^3/uL RBC 3.79 L (4.00-5.50) x10^6/uL Hgb 11.1 L (12.0-16.0) g/dL Hct 37.0 (33.0-47.0) % MCV 97.6 H (78.0-93.0) fL MCH 29.3 (26.0-32.0) pg MCHC 30.0 L (32.0-36.0) g/dL RDW Coeff of Billy 12.4 (10.0-15.0) % Plt Count 298 (130-400) x10^3/uL Neut % (Auto) 85.7 H (50.0-80.0) % Lymph % (Auto) 8.3 L (25.0-50.0) % [facility] % (Auto) 5.6 (2.0-11.0) % Eos % (Auto) 0.1 (0.0-4.0) % Baso % (Auto) 0.3 (0.2-1.2) % PT 11.2 (9.9-12.5) SEC INR 1.0 L (2.0-3.5) APTT (25.6-32.8) SEC Sodium (136-145) mmol/L Potassium (3.5-5.1) mmol/L Chloride (98-107) mmol/L Carbon Dioxide (21-32) mmol/L Anion Gap (5-15) mmol/L BUN (7-18) mg/dL Creatinine (0.55-1.02) mg/dL Est Cr Clr Drug Dosing Estimated GFR (MDRD) Glucose (74-106) mg/dL Calcium (8.5-10.1) mg/dL Corrected Calcium (8.5-10.1) mg/dL Magnesium (1.8-2.4) mg/dL Total Bilirubin (0.2-1.0) mg/dL AST (15-37) U/L ALT (14-59) U/L Alkaline Phosphatase (46-116) U/L Total Protein (6.4-8.2) g/dL Albumin (3.4-5.0) g/dL Globulin Albumin/Globulin Ratio Stool Occult Blood Negative (NEGATIVE) 08/14/20 08/14/20 Range/Units 23:46 23:46 WBC (4.0-10.0) x10^3/uL RBC (4.00-5.50) x10^6/uL Hgb (12.0-16.0) g/dL Hct (33.0-47.0) % MCV (78.0-93.0) fL MCH (26.0-32.0) pg MCHC (32.0-36.0) g/dL RDW Coeff of Billy (10.0-15.0) % Plt Count (130-400) x10^3/uL Neut % (Auto) (50.0-80.0) % Lymph % (Auto) (25.0-50.0) % [facility] % (Auto) (2.0-11.0) % Eos % (Auto) (0.0-4.0) % Baso % (Auto) (0.2-1.2) % PT (9.9-12.5) SEC INR (2.0-3.5) APTT 20.7 L (25.6-32.8) SEC Sodium 144 (136-145) mmol/L Potassium 3.5 (3.5-5.1) mmol/L Chloride 104 (98-107) mmol/L Carbon Dioxide 30 (21-32) mmol/L Anion Gap 13.5 (5-15) mmol/L BUN 24 H (7-18) mg/dL Creatinine 0.7 (0.55-1.02) mg/dL Est Cr Clr Drug Dosing TNP Estimated GFR (MDRD) > 60 Glucose 128 H (74-106) mg/dL Calcium 9.5 (8.5-10.1) mg/dL Corrected Calcium 9.90 (8.5-10.1) mg/dL Magnesium 2.0 (1.8-2.4) mg/dL Total Bilirubin 0.3 (0.2-1.0) mg/dL AST 16 (15-37) U/L ALT 14 (14-59) U/L Alkaline Phosphatase 104 (46-116) U/L Total Protein 7.5 (6.4-8.2) g/dL Albumin 3.5 (3.4-5.0) g/dL Globulin 4.0 Albumin/Globulin Ratio 0.88 Stool Occult Blood (NEGATIVE) Meds: Medications Generic Name Dose Route Start Last Admin Trade Name Freq PRN Reason Stop Dose Admin Sodium Chloride 1,000 mls @ 1,000 mls/hr 08/14/20 23:15 08/14/20 23:18 Normal Saline IV 1,000 mls/hr ASDIRECTED TOD Administration Discontinued Medications Generic Name Dose Route Start Last Admin Trade Name Elie PRN Reason Stop Dose Admin Ondansetron HCl 4 mg 08/14/20 23:18 08/14/20 23:21 Zofran IVPUSH 08/14/20 23:19 4 mg ONETIME ONE Administration Ondansetron HCl 1 packet 08/15/20 01:15 08/15/20 01:19 Take Home: Ondansetron Odt 4 Mg, 2 Tab Pack PO 08/15/20 01:16 1 packet ONETIME ONE Administration Departure - Departure Time of Disposition: 01:34 Disposition: DC/Tfer to [facility] Clinical Impression: Gastroenteritis - Discharge Information Instructions: Viral Gastroenteritis, Adult, [id number] Referrals: Brooke Vazquez, [Primary Care Provider] - Forms: ED Department Discharge Additional Instructions: Stop dulcolax, miralax, and colace until the patient is having formed stools. Start zofran ODT4mg 1 every 6 hours as needed for nausea/vomiting. Encourage plenty of clear liquids. Recheck in clinic in 5-7 days if not gradually improving. Sepsis Event Note (ED) - Focused Exam Vital Signs: Vital Signs Temp Pulse Resp BP Pulse Ox 08/14/20 23:58 82 15 170/92 H 98 08/14/20 23:28 36.6 C 90 17 183/84 H 96 - My Orders Last 24 Hours: My Active Orders 08/14/20 23:11 Head wo Cont [CT] Stat 08/14/20 23:15 Sodium Chloride 0.9% [Normal Saline] 1,000 ml IV ASDIRECTED - Assessment/Plan Last 24 Hours: My Active Orders 08/14/20 23:11 Head wo Cont [CT] Stat 08/14/20 23:15 Sodium Chloride 0.9% [Normal Saline] 1,000 ml IV ASDIRECTED Plan: Pt. will be discharged back to [facility]. Stool was negative for occult blood. Hemoglobin was higher today than when she was discharged on 08/03. She reports that she is feeling better. Denies any abdominal discomfort on palpation of abdomen. Attempted CT scan of head several times but pt. would continue to move and talk, even when her head was held in the CT scanner. She would require conscious sedation in order to obtain a head CT. She denies any headache, does not have any new focal neuro symptoms, and appears to be at her baseline neurologically so we forgo head CT at this time. Pt. is on colace, dulcolax, and miralax, all of which were discontinued until her stools are formed. Will start Zofran 4mg ODT 1 tab every 6 hours as needed for nausea/vomiting. Recheck in clinic in 5-7 days if still having symptoms.
[2020-08-15 00:15] LABS: CHLORIDE,CL 104 mmol/L (98-107); SODIUM,NA 144 mmol/L (136-145)
[2020-08-15 00:20] LABS: ANION GAP 13.5 mmol/L (5-15)
[2020-08-15] MEDS ORDERED: Take Home: Ondansetron 4 MG Tab.DIS, 2 Tab Pack PO ONE (01:15)
== END 2020-08-15 01:40 ==
LOC: VM.ED 22:54
DX: S00.83XA Contusion of other part of head, initial encounter (principal); K52.9 Noninfective gastroenteritis and colitis, unspecified; Z91.048 Other nonmedicinal substance allergy status; Z88.8 Allergy status to other drugs, medicaments and biological substances; Z79.899 Other long term (current) drug therapy; W18.12XA Fall from or off toilet with subsequent striking against object, initial encounter
CPT/HCPCS: 36415; 80053; 82274; 83735; 85025; 85610; 85730; 96374; 99284; 99284-25; A9270-GY; J2405; J7030

== ENCOUNTER 2020-11-11 15:15 | Emergency (ER) | payer MEDICARE, MEDICAID ==
[2020-11-11] MEDS ORDERED: Sodium Chloride 0.9% 10 ML Syringe FLUSH PRN (15:21)
[2020-11-11] MEDS ORDERED: Sodium Chloride 0.9% 1,000 ML IV ONE (15:22)
--- NOTE | 2020-11-11 15:42 | EDM.PDOC ---
ED HPI GENERAL MEDICAL PROBLEM - General Chief Complaint: General Time Seen by Provider: 11/11/20 15:17 Source of Information: Reports: Patient, Group Home Records, RN - History of Present Illness INITIAL COMMENTS - FREE TEXT/NARRATIVE: Melanie is a 70 y/o female who lives at the [facility]. She arrives to the ER with report of a fever through the night with dark stools and low blood pressure. [facility] reported that her temps last night were 102-103 range. Today her BP was 60s/30. On arrival she does look ill, but cannot really tell staff any of her complaints. She is asking to eat. She is afebrile and BP 122/63 on arrival. Treatments SENIOR BIOSTATISTICIAN/GROUP LEADER: Reports: IV/IO - Related Data Allergies Allergy/AdvReac Type Severity Reaction Status Date / Time fluphenazine [From Prolixin] Allergy Other Verified 11/11/20 15:29 wool Allergy Other Verified 11/11/20 15:29 Home Meds: Home Meds Acetaminophen [Tylenol Arthritis] 650 mg PO Q8H 08/01/20 [History] Acetaminophen [Tylenol Arthritis] 650 mg PO TID 08/01/20 [History] Acetaminophen/HYDROcodone [[place] 325-5 MG] 1 tab PO BID 08/01/20 [History] Calcium Citrate/Vitamin D3 [Calcium Citrate - Vit D Tablet] 1 each PO BID 08/01/20 [History] Cyanocobalamin (Vitamin B-12) [B-12] 1 tab PO DAILY 08/01/20 [History] [place] Carbonate [[place] Carbonate ER] 750 mg PO DAILY 08/01/20 [History] Magnesium Chloride [Mag Delay] 128 mg PO BID 08/01/20 [History] OLANZapine [ZyPREXA] 20 mg PO BEDTIME 08/01/20 [History] Pnv No.95/Ferrous Fum/Folic AC [ Vitamin Tablet] 1 each PO DAILY 08/01/20 [History] Sertraline [Zoloft] 100 mg PO DAILY 08/01/20 [History] bisacodyL [Bisacodyl] 5 mg PO ACBREAKFAST PRN 08/01/20 [History] bisacodyL [Bisacodyl] 5 mg PO DAILY 08/01/20 [History] gemfibroziL [Gemfibrozil] 600 mg PO BID 08/01/20 [History] polyethylene glycoL 3350 [Miralax] 17 gm PO BID 08/01/20 [History] QUEtiapine Fumarate [Quetiapine Fumarate ER] 200 mg PO BEDTIME 08/02/20 [Hist ory] QUEtiapine Fumarate [Quetiapine Fumarate ER] 400 mg PO BEDTIME 08/02/20 [History] Sulfamethoxazole/Trimethoprim [Bactrim Ds Tablet] 1 each PO BID #6 tablet 08/03/20 [Rx] Past Medical History Cardiovascular History: Reports: High Cholesterol Gastrointestinal History: Reports: Chronic Constipation Genitourinary History: Reports: Urinary Incontinence Musculoskeletal History: Reports: Osteoarthritis, Other (See Below) Other Musculoskeletal History: Chronic Pain Neurological History: Reports: Alzheimers Disease Psychiatric History: Reports: Bipolar, OCD, Schizophrenia Other Psychiatric History: OCD, paranoid schizophrenia, schizoaffective disorder, bipolar type, borderline personality disorder. Endocrine/Metabolic History: Reports: Obesity/BMI 30+ Hematologic History: Reports: Anemia - Infectious Disease History Infectious Disease History: Reports: Novel Coronavirus Social & Family History - Tobacco Use Tobacco Use Status *Q: Unknown Ever Used Tobacco ED ROS GENERAL - Review of Systems Review Of Systems: See Below Constitutional: Reports: Fever, Weakness HEENT: Reports: No Symptoms Respiratory: Reports: No Symptoms Cardiovascular: Reports: No Symptoms Endocrine: Reports: Fatigue GI/Abdominal: Reports: Black Stool : Reports: Incontinence Musculoskeletal: Reports: No Symptoms Skin: Reports: Pallor Neurological: Reports: Trouble Speaking, Weakness Psychiatric: Reports: No Symptoms Hematologic/Lymphatic: Reports: No Symptoms Immunologic: Reports: No Symptoms ED EXAM, GENERAL - Physical Exam Exam: See Below General Appearance: Alert (Elderly male, looks ill. She is able to answer some questions and then other times her answers are slurred and mumbled.) Eye Exam: Bilateral Eye: PERRL Ears: Normal External Exam, Normal Canal, Hearing Grossly Normal, Normal TMs Nose: Normal Inspection, Normal Mucosa Throat/Mouth: Normal Inspection, Normal Lips, Normal Voice Head: Atraumatic, Normocephalic Neck: Normal Inspection, Supple Respiratory/Chest: No Respiratory Distress, Lungs Clear, Chest Non-Tender Cardiovascular: Normal Peripheral Pulses, Regular Rate, Rhythm GI/Abdominal: Normal Bowel Sounds (Female) Exam: Deferred Extremities: Non-Tender, Pedal Edema (bilateral lower legs, nonpitting) Neurological: Alert, Slow to Respond Psychiatric: Flat Affect Skin Exam: Intact, Diaphoretic, Pallor Lymphatic: No Adenopathy Course - Vital Signs Text/Narrative:: 1520 The patient was seen by the CABLE TOOL OPERATOR. Labs ordered. She was given IV fluids on arrival. Will await labs prior to any further med since her Vital are stable at this time. 1645 Labs reviewed. Note Hgb 7.7, Hct 23.7 (Hgb 07/2020=11.1), Neuts=83%. CMP BUN=80, Quality Assurance Test Program Manager=1.3. Lactic ACid=1.6, UA- Leuk Es=mod, WBC=20-30, Bacteria=mod, Epis=trace. Will treat for UTI with Ceftriaxone 1gm IVP. Also note +SFOB. Hgb had dropped in [facility] last couple months. [address] [facility] contacted and transfer requested. [address] Dr Matias, the hospitalist at [facility] returned call and case presented. He accepted the patient for transfer. Patient's guardian=CORTNEY Guardian Conservators contacted and [place] consented for patient to be sent to [place]. Code 2 status confirmed with guardian at this time. Will continue IV fluids due to BUN=80 and also keep patient NPO until GI bleeding source identified. Patient remained stable in the ER Blood and Urine Cx were pending and patient transfer to [place]. Patient left with [facility] for direct admission to [facility]. Last Recorded V/S: Last Vital Signs Temp 36.1 C 11/11/20 17:24 Pulse 90 11/11/20 17:24 Resp 18 11/11/20 17:24 BP 142/75 H 11/11/20 17:24 Pulse Ox 96 11/11/20 17:24 - Orders/Labs/Meds Orders: Active Orders 24 hr Category Date Time Status CULTURE BLOOD [BC] Stat Lab 11/11/20 16:16 Received CULTURE BLOOD [BC] Stat Lab 11/11/20 17:06 Received CULTURE URINE [RM] Stat Lab 11/11/20 16:40 Received Sodium Chloride 0.9% [Saline Flush] Med 11/11/20 15:21 Active 10 ml FLUSH ASDIRECTED PRN cefTRIAXone [Rocephin] Med 11/11/20 17:32 Once 1 gm IVPUSH STAT ONE Blood Culture x2 Reflex Set [OM.PC] Stat Oth 11/11/20 16:00 Ordered Saline Lock Insert [OM.PC] Stat Oth 11/11/20 15:21 Ordered Medication Orders Sodium Chloride (Sodium Chloride 0.9% 10 Ml Syringe) 10 ml FLUSH ASDIRECTED PRN PRN Reason: Keep Vein Open Labs: Laboratory Tests 11/11/20 11/11/20 11/11/20 Range/Units 15:42 15:42 15:42 WBC 13.6 H (4.0-10.0) x10^3/uL RBC 2.66 L (4.00-5.50) x10^6/uL Hgb 7.7 L D (12.0-16.0) g/dL Hct 23.7 L (33.0-47.0) % MCV 89.1 D (78.0-93.0) fL MCH 28.9 (26.0-32.0) pg MCHC 32.5 (32.0-36.0) g/dL RDW Coeff of Billy 13.5 (10.0-15.0) % Plt Count 211 D (130-400) x10^3/uL Add Manual Diff Yes Neutrophils % (Manual) 83 H (50-80) % Lymphocytes % (Manual) 9 L (25-50) % Monocytes % (Manual) 8 (2-11) % Platelet Estimate Adequate PT 11.8 (9.9-12.5) SEC INR 1.1 L (2.0-3.5) Sodium 137 (136-145) mmol/L Potassium 3.9 (3.5-5.1) mmol/L Chloride 101 (98-107) mmol/L Carbon Dioxide 20 L D (21-32) mmol/L Anion Gap 19.9 H (5-15) mmol/L BUN 80 H* D (7-18) mg/dL Creatinine 1.3 H (0.55-1.02) mg/dL Est Cr Clr Drug Dosing TNP Estimated GFR (MDRD) 40 Glucose 201 H (70-99) mg/dL Lactic Acid (0.4-2.0) mmol/L Calcium 9.5 (8.5-10.1) mg/dL Corrected Calcium 10.5 H (8.5-10.1) mg/dL Magnesium 2.2 (1.8-2.4) mg/dL Total Bilirubin 0.2 (0.2-1.0) mg/dL AST < 10 L (15-37) U/L ALT 13 L (14-59) U/L Alkaline Phosphatase 76 (46-116) U/L C-Reactive Protein 20.9 H (<=0.9) mg/dL Total Protein 6.8 (6.4-8.2) g/dL Albumin 2.8 L (3.4-5.0) g/dL Globulin 4.0 Albumin/Globulin Ratio 0.70 Urine Color (YELLOW) Urine Appearance (CLEAR) Urine pH (5.0-8.0) Ur Specific [place] Urine Protein (NEGATIVE) mg/dL Urine Glucose (UA) (NEGATIVE) mg/dL Urine Ketones (NEGATIVE) mg/dL Urine Occult Blood (NEGATIVE) Urine Nitrite (NEGATIVE) Urine Bilirubin (NEGATIVE) Urine Urobilinogen (0.2) EU/dL Ur Leukocyte Esterase (NEGATIVE) U Hyaline Cast (Auto) Urine RBC (NOT SEEN) /HPF Urine WBC (NOT SEEN) /HPF Ur Squamous Epith Cells (NOT SEEN) /HPF Ur Renal Epithelial Cell (NOT SEEN) /HPF Urine Bacteria (NOT SEEN) /HPF Urine Mucus (NOT SEEN) /LPF Stool Occult Blood (NEGATIVE) 11/11/20 11/11/20 11/11/20 Range/Units 16:16 16:40 16:42 WBC (4.0-10.0) x10^3/uL RBC (4.00-5.50) x10^6/uL Hgb (12.0-16.0) g/dL Hct (33.0-47.0) % MCV (78.0-93.0) fL MCH (26.0-32.0) pg MCHC (32.0-36.0) g/dL RDW Coeff of Billy (10.0-15.0) % Plt Count (130-400) x10^3/uL Add Manual Diff Neutrophils % (Manual) (50-80) % Lymphocytes % (Manual) (25-50) % Monocytes % (Manual) (2-11) % Platelet Estimate PT (9.9-12.5) SEC INR (2.0-3.5) Sodium (136-145) mmol/L Potassium (3.5-5.1) mmol/L Chloride (98-107) mmol/L Carbon Dioxide (21-32) mmol/L Anion Gap (5-15) mmol/L BUN (7-18) mg/dL Creatinine (0.55-1.02) mg/dL Est Cr Clr Drug Dosing Estimated GFR (MDRD) Glucose (70-99) mg/dL Lactic Acid 1.6 (0.4-2.0) mmol/L Calcium (8.5-10.1) mg/dL Corrected Calcium (8.5-10.1) mg/dL Magnesium (1.8-2.4) mg/dL Total Bilirubin (0.2-1.0) mg/dL AST (15-37) U/L ALT (14-59) U/L Alkaline Phosphatase (46-116) U/L C-Reactive Protein (<=0.9) mg/dL Total Protein (6.4-8.2) g/dL Albumin (3.4-5.0) g/dL Globulin Albumin/Globulin Ratio Urine Color Yellow (YELLOW) Urine Appearance Slightly cloudy H (CLEAR) Urine pH 5.0 (5.0-8.0) Ur Specific [place] 1.010 Urine Protein 30 H (NEGATIVE) mg/dL Urine Glucose (UA) Negative (NEGATIVE) mg/dL Urine Ketones Negative (NEGATIVE) mg/dL Urine Occult Blood Trace-intact H (NEGATIVE) Urine Nitrite Negative (NEGATIVE) Urine Bilirubin Negative (NEGATIVE) Urine Urobilinogen 0.2 (0.2) EU/dL Ur Leukocyte Esterase Moderate H (NEGATIVE) U Hyaline Cast (Auto) Rare Urine RBC 0-5 (NOT SEEN) /HPF Urine WBC 20-30 H (NOT SEEN) /HPF Ur Squamous Epith Cells Rare (NOT SEEN) /HPF Ur Renal Epithelial Cell Rare H (NOT SEEN) /HPF Urine Bacteria Moderate H (NOT SEEN) /HPF Urine Mucus Rare H (NOT SEEN) /LPF Stool Occult Blood Positive H (NEGATIVE) Meds: Medications Generic Name Dose Route Start Last Admin Trade Name Freq PRN Reason Stop Dose Admin Sodium Chloride 10 ml 11/11/20 15:21 Sodium Chloride 0.9% 10 Ml Syringe FLUSH ASDIRECTED PRN Keep Vein Open Discontinued Medications Generic Name Dose Route Start Last Admin Trade Name Freq PRN Reason Stop Dose Admin Sodium Chloride 1,000 mls @ 999 mls/hr 11/11/20 15:22 11/11/20 15:22 Normal Saline IV 11/11/20 16:22 999 mls/hr ONETIME ONE Administration Departure - Departure Time of Disposition: 17:39 Disposition: DC/[facility]fer to [facility] 05 Condition: Good Clinical Impression: UTI (urinary tract infection) Qualifiers: Urinary tract infection type: site unspecified Hematuria presence: without hematuria Qualified Code(s): N39.0 - Urinary tract infection, site not specified GI bleeding Qualifiers: GI bleed type/associated pathology: unspecified gastrointestinal hemorrhage type Qualified Code(s): K92.2 - Gastrointestinal hemorrhage, unspecified - Discharge Information *PRESCRIPTION DRUG MONITORING PROGRAM REVIEWED*: Not Applicable *COPY OF PRESCRIPTION DRUG MONITORING REPORT IN PATIENT YOMI: Not Applicable Forms: ED Department Discharge, Interfacility Transfer EMTALA Additional Instructions: -Transfer to [facility] via [facility] to Dr Matias for direct admission Sepsis Event Note (ED) - Evaluation Sepsis Screening Result: No Definite Risk - Focused Exam Vital Signs: Vital Signs Temp Pulse Resp BP Pulse Ox 11/11/20 17:24 36.1 C 90 18 142/75 H 96 11/11/20 15:23 36.3 C 99 18 122/63 96 - My Orders Last 24 Hours: My Active Orders 11/11/20 15:21 Sodium Chloride 0.9% [Saline Flush] 10 ml FLUSH ASDIRECTED PRN Saline Lock Insert [OM.PC] Stat 11/11/20 16:00 Blood Culture x2 Reflex Set [OM.PC] Stat 11/11/20 16:16 CULTURE BLOOD [BC] Stat 11/11/20 16:40 CULTURE URINE [RM] Stat 11/11/20 17:06 CULTURE BLOOD [BC] Stat 11/11/20 17:32 cefTRIAXone [Rocephin] 1 gm IVPUSH STAT ONE - Assessment/Plan Last 24 Hours: My Active Orders 11/11/20 15:21 Sodium Chloride 0.9% [Saline Flush] 10 ml FLUSH ASDIRECTED PRN Saline Lock Insert [OM.PC] Stat 11/11/20 16:00 Blood Culture x2 Reflex Set [OM.PC] Stat 11/11/20 16:16 CULTURE BLOOD [BC] Stat 11/11/20 16:40 CULTURE URINE [RM] Stat 11/11/20 17:06 CULTURE BLOOD [BC] Stat 11/11/20 17:32 cefTRIAXone [Rocephin] 1 gm IVPUSH STAT ONE Assessment:: 1)GI Bleeding-Hgb=7.7/Hct=23.7) 2)UTI Plan: -Transfer to [facility]
--- NOTE | 2020-11-11 16:09 | CR ---
[id number] RAD/RAD Chest PA or AP 1V EXAM: SINGLE VIEW CHEST. INDICATION: FEVER AND WEAKNESS COMPARISON: CORRELATION IS MADE WITH AUGUST 01, 2020 FINDINGS: Bibasilar discoid atelectatic changes are seen There is no infiltrate otherwise The cardiac silhouette is enlarged but stable IMPRESSION: BIBASILAR HYPOVENTILATORY CHANGE Paul Simpson MD 11/11/20 [id number] Thank you for allowing us to participate in the care of your patient.
[2020-11-11 16:17] LABS: CHLORIDE,CL 101 mmol/L (98-107); SODIUM,NA 137 mmol/L (136-145)
[2020-11-11 16:22] LABS: ANION GAP 19.9 mmol/L (5-15)
[2020-11-11] MEDS ORDERED: cefTRIAXone 1 GM Vial IVPUSH ONE (17:32)
== END 2020-11-11 19:10 | disposition designated cancer center or children's hospital (05) ==
LOC: VM.ED 15:15
DX: K92.2 Gastrointestinal hemorrhage, unspecified (principal); N39.0 Urinary tract infection, site not specified; G30.9 Alzheimer's disease, unspecified; F02.80 Dementia in other diseases classified elsewhere, unspecified severity, without behavioral disturbance, psychotic disturbance, mood disturbance, and anxiety; E66.9 Obesity, unspecified; Z91.048 Other nonmedicinal substance allergy status; Z88.8 Allergy status to other drugs, medicaments and biological substances; Z79.899 Other long term (current) drug therapy
CPT/HCPCS: 36415; 71045; 80053; 81001; 83605; 83735; 85025; 85610; 86140; 87040; 87086; 87088; 87186; 96374; 99285-25; G0328; J0696; J7030

== ENCOUNTER 2022-05-09 19:49 | Emergency (ER) | payer MEDICARE, OTHER, MEDICAID ==
[2022-05-09] MEDS ORDERED: Acetaminophen/HYDROcodone 325-10 MG Tab PO ONE (19:59)
== END 2022-05-09 23:50 ==
LOC: VM.ED 19:49
DX: S83.91XA Sprain of unspecified site of right knee, initial encounter (principal); E78.00 Pure hypercholesterolemia, unspecified; Z79.899 Other long term (current) drug therapy; X58.XXXA Exposure to other specified factors, initial encounter
CPT/HCPCS: 73562-LT; 73562-RT; 73700-RT; 99284

== ENCOUNTER 2022-05-25 11:34 | Emergency (ER) | payer MEDICARE, OTHER, MEDICAID | END 2022-05-25 14:28 | disposition home or self-care (01) | LOC: VM.ED 11:34 | DX: S72.421A Displaced fracture of lateral condyle of right femur, initial encounter for closed fracture (principal); E66.9 Obesity, unspecified; Z68.30 Body mass index [BMI] 30.0-30.9, adult; Z88.8 Allergy status to other drugs, medicaments and biological substances; Z79.899 Other long term (current) drug therapy; W19.XXXA Unspecified fall, initial encounter | CPT/HCPCS: 73700-RT; 99283; 99284 ==